=== PATIENT | female | born 1975 | race Caucasian/White ===

== ENCOUNTER 2024-02-18 08:15 | Outpatient (RCR) | payer OTHER, SELFPAY | END 2024-03-05 23:59 | disposition home or self-care (01) | LOC: SOT 08:15 | PROVIDERS: Visit Provider Internal Medicine | DX: G24.9 Dystonia, unspecified (principal) | CPT/HCPCS: 97110; 97165 ==

== ENCOUNTER 2024-04-20 11:07 | Outpatient (CLI) | payer OTHER, SELFPAY ==
--- NOTE | 2024-04-20 11:12 | MM_ITS ---
WS: [id number] SCREENING DIGITAL BREAST TOMOSYNTHESIS MAMMOGRAM WITH CAD HISTORY: SCREENING COMPARISON: 06/23/2013, 08/05/2017, 06/23/2013 Bilateral CC and MLO with tomosynthesis and synthetic mammography submitted. Computer aided detection analyzed. Breast composition: The breasts are heterogeneously dense, which may obscure small masses. Mass seen only on the RIGHT CC projection posterior breast measures 8 x 6 mm. No definite corresponding abnorma lity on the lateral projection. This mass is slightly lobulated and of increased density. LEFT breast is negative. MM/MM scr tomosynthesis 82995 IMPRESSION: BI-RADS: 0 - Incomplete: Need additional imaging evaluation FOLLOW UP: Need Additional Imaging RIGHT breast: Spot compression views (CC ). True ML. Ultrasound to follow if ab normality persists.
== END 2024-04-20 11:08 | disposition home or self-care (01) ==
LOC: RAD 11:07
PROVIDERS: PCP Family Medicine; Visit Provider Family Medicine
DX: Z12.31 Encounter for screening mammogram for malignant neoplasm of breast (principal); R92.333 Mammographic heterogeneous density, bilateral breasts; N63.10 Unspecified lump in the right breast, unspecified quadrant
CPT/HCPCS: 77063; 77067

== ENCOUNTER 2024-05-17 11:36 | Outpatient (CLI) | payer OTHER, SELFPAY ==
[2024-05-17 11:43] VITALS: BMI 20.1
--- NOTE | 2024-05-17 11:49 | ECG_ITS ---
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 Interpretive Statements Lung unchanged pre/post procedure; Intraprocedure shortess of breath; Symptoms resoled by discharge PROCEDURE: At the baseline, the patient's blood pressure was 117/79 with a heart rate of 73. The baseline electrocardiogram showed normal sinus rhythm with normal ST-Ts. Frequent supraventricular ectopics. The patient exercised for 13 minutes and 30 seconds on a standard Stef protocol. Patient attained a maximum heart rate of 170 beats per minute(100% of the maximum predicted heart rate) with a blood pressure at the peak exercise of 122/59 mm Hg. there was a slight drop in the systolic blood pressure to 80s the peak exercise from the peak pressure blood pressure during exercise. The EKG at the peak exercise revealed [address] depressions in leads 2, 3, aVF, V5 and V6. Patient did not have any chest pain or any significant cardiac arrhythmias with the exercise During the recovery phase, there were no new changes. The EKG reverted almost back to the baseline. The patient was complaining about chest pressure during the recovery phase Blood pressure at the end of the recovery phase was 144/78 mm Hg with a heart rate of 93 per minute. CONCLUSION: 1. Abnormal EKG response to treadmill exercise suggesting inferolateral wall ischemia 2. Exercise-induced chest pressure during the recovery phase 3. Good exercise tolerance, attained a maximum of 17.2 METs Electronically Signed On 05-23-2024 06:45:09 [employer] by Geovanny Ortega M.[email or web address]
[2024-05-17 12:39] VITALS: BP 154/54; PULSE 94
== END 2024-05-17 11:37 | disposition home or self-care (01) ==
LOC: CDL 11:36
PROVIDERS: PCP Family Medicine; Visit Provider Family Medicine
DX: R07.89 Other chest pain (principal); R93.1 Abnormal findings on diagnostic imaging of heart and coronary circulation
CPT/HCPCS: 93017